=== PATIENT | male | born 1985 | race African-American/Black ===

== ENCOUNTER 2018-04-09 20:44 | Emergency (ER) | payer OTHER ==
[~2018-04-09] VITALS: Ht 185.4 cm; Wt 73.8 kg
[2018-04-09 20:50] VITALS: BP 135/93
[2018-04-09] MEDS ORDERED: ALBU0.63 NEB (21:07)
[2018-04-09] MEDS ORDERED: LIDOCAINE-MPF 2%, 2ML ONE (21:14)
[2018-04-09] MEDS ORDERED: LIDOCAINE-MPF 1%, 5ML INFIL ONE (21:30)
== END 2018-04-09 22:42 | disposition home or self-care (01) ==
LOC: ED 22:28
DX: S06.0X9A Concussion with loss of consciousness of unspecified duration, initial encounter (principal); S01.311A Laceration without foreign body of right ear, initial encounter; X58.XXXA Exposure to other specified factors, initial encounter; Y93.89 Activity, other specified; Y92.69 Other specified industrial and construction area as the place of occurrence of the external cause; Y99.0 Civilian activity done for income or pay; Y99.8 Other external cause status; Y92.89 Other specified places as the place of occurrence of the external cause
CPT/HCPCS: 12011; 13151; 70450; 99284; 99285